=== PATIENT | male | born 1985 | race Caucasian/White ===

== ENCOUNTER → 2020-03-27 15:53 | Outpatient (BNVA) | payer OTHER, SELFPAY | PROVIDERS: PCP Internal Medicine; Referring Provider Internal Medicine; Visit Provider Nurse Practitioner | DX: K62.5 Hemorrhage of anus and rectum (principal); K21.9 Gastro-esophageal reflux disease without esophagitis; K64.4 Residual hemorrhoidal skin tags; K52.9 Noninfective gastroenteritis and colitis, unspecified; Z79.899 Other long term (current) drug therapy | CPT/HCPCS: 99212 ==

== ENCOUNTER 2020-03-28 09:18 | Outpatient (REF) | payer OTHER, SELFPAY ==
[2020-03-28 12:02] LABS: MANUAL DIFF FLAG NO
[2020-03-28 12:07] LABS: Basophils Percent Auto 0.5 % (0-2); Eosinophils Percent Auto 0.7 % (0-4); Hematocrit 44.7 % (42-52); Hemoglobin 15.3 g/dl (14.0-18.0); Imm Gran Abs Auto 0.01 X10*3/uL (0.00-0.03); Imm Gran Pct Auto 0.2 % (0.0-0.4); Lymphocytes Absolute Auto 1.6 X10*3/uL (1.2-4.9); Lymphocytes Percent Auto 27.6 % (20-40); Mean Corpuscular HGB Conc 34.2 g/dl (31.0-36.0); Mean Corpuscular Hemoglobin 30.8 pg (27.0-33.0); Mean Corpuscular Volume 90.1 fL (80-98); Mean Platelet Volume 10.4 fL (9.4-12.4); Monocytes Absolute Auto 0.4 X10*3/uL (0.1-1.2); Monocytes Percent Auto 7.2 % (2-11); Neutrophils Absolute Auto 3.6 X10*3/uL (2.0-8.3); Neutrophils Percent Auto 63.8 % (45-73); Platelet Count 305 X10*3/uL (160-400); Red Blood Count 4.96 X10*6/uL (4.60-5.80); Red Cell Distribution Width 11.9 % (11.0-16.0); White Blood Count 5.7 X10*3/uL (4.8-10.8)
[2020-03-28 13:43] LABS: Alanine Aminotransferase 21 U/L (0-40); Albumin Level 4.7 g/dL (3.5-5.0); Alkaline Phosphatase 97 U/L (39-117); Anion Gap 14 (12-20); Aspartate Amino Transferase 20 U/L (5-37); Bilirubin Total 0.7 mg/dL (0.0-1.0); Blood Urea Nitrogen 13 mg/dL (9-16); Calcium 9.3 mg/dL (8.4-10.2); Carbon Dioxide 28 mmol/L (22-29); Chloride 103 mmol/L (96-108); Estimated Glomerular Filt Rate > 60; Glucose Random 88 mg/dL (60-115); Potassium 4.8 mmol/l (3.3-5.1); Sodium 140 mmol/L (135-145); Total Protein 7.8 g/dL (6.5-8.0)
[2020-04-02 13:26] LABS: Gliadin Deamidated IgA Ab 5 Units; Gliadin Deamidated IgG Ab 3 Units
== END 2020-03-28 09:19 | disposition home or self-care (01) ==
LOC: HO.LAB 09:18
PROVIDERS: PCP Internal Medicine; Visit Provider Nurse Practitioner
DX: K52.9 Noninfective gastroenteritis and colitis, unspecified (principal); K64.4 Residual hemorrhoidal skin tags; K64.8 Other hemorrhoids
CPT/HCPCS: 36415; 46600; 80053; 83516; 85025; 86140; 99212

== ENCOUNTER → 2020-04-24 15:14 | Outpatient (BNVA) | payer OTHER, SELFPAY | PROVIDERS: PCP Internal Medicine; Visit Provider Nurse Practitioner | DX: Z76.89 Persons encountering health services in other specified circumstances (principal) ==

== ENCOUNTER 2020-05-29 10:31 | Outpatient (REF) | payer OTHER, SELFPAY ==
--- NOTE | 2020-05-29 10:37 | XR_ITS ---
EXAMINATION: XR LUMBOSACRAL SPINE CLINICAL INFORMATION: Low back pain COMPARISON: None TECHNIQUE: Three views of the lumbosacral spine. FINDINGS: The vertebral bodies have normal height and alignment. The curvature of the lumbar spine is normal. Lack of ribs at the T12 level. The disc spaces are maintained. No evidence of degenerative disc disease, pars interarticularis defect or vertebral compression fracture. The anterior and posterior elements are intact. No lytic or osteoblastic lesions. Sacrum and sacroiliac joints are unremarkable. XR/XR lumbar spine 2-3V IMPRESSION: Normal lumbar spine. No evidence of degenerative disc disease, fracture or malalignment.
== END 2020-05-29 10:32 | disposition home or self-care (01) ==
LOC: HO.XRAY 10:31
PROVIDERS: PCP Internal Medicine; Visit Provider Physician Assistant
DX: M54.5 Low back pain (principal)
CPT/HCPCS: 72100

== ENCOUNTER 2021-01-25 21:08 | Emergency (ER) | payer OTHER, SELFPAY ==
[2021-01-25 22:23] VITALS: BP 133/74; PULSE 110; RESP 16; TEMP 38; O2SAT 99; BMI 26.4
--- NOTE | 2021-01-25 23:43 | PC.NURSE ---
Patient states that it read when he urinates. Patient given a cup for urine sample and swabbed for covid.
[2021-01-25 23:50] LABS: Glucose Urine UA NEG (NEG); Leukocyte Esterase Urine 1+ (NEG); Nitrite Urine NEG (NEG); Specific Gravity - Urine 1.025 (1.005-1.025); Urine Blood 2+ (NEG); Urine Ketones NEG (NEG); Urine Protein TRACE MG/DL (NEG-TRACE)
[2021-01-25 23:53] LABS: Appearance Urine HAZY; Color Urine YELLOW
[2021-01-26 00:09] LABS: Bacteria Urine 2+ /LPF; Mucus Urine 2+ /LPF; Squamous Epithelial Cell Urine 1+ /LPF
--- NOTE | 2021-01-26 00:15 | ED.GENADULT ---
HPI - General Adult General Chief complaint: General Medical Stated complaint: body weakness Time Seen by Provider: 01/26/21 00:08 Source: patient Mode of arrival: ambulatory Limitations: no limitations History of Present Illness HPI narrative: 35 y/o male presenting to the ER with back aches, chills that started today. He also reports pain and burning when he urinates. He has some suprapubic pain but no N/V/D. He feels constipated. He denies fever, chills, SOB, cough, chest pain. He has no testicular pain, urethral discharge, or concern for STI. Patient is fully vaccinated against COVID-19 complaint: dysuria Onset (ago): hour(s) (12) Location: abdomen Radiation: non-radiation Severity: mild Severity scale (1-10): 3 Quality: burning Pain Consistency: intermittent Relieving factors: none Exacerbating factors: none Associated symptoms: denies other symptoms Treatments prior to arrival: none Related Data Home Medications Medication Instructions Recorded Confirmed loratadine-pseudoephedrine ER 10 1 tab PO DAILY 03/27/20 06/10/20 mg-240 mg tablet,extended [id number] (Claritin-D 24 Hour) Previous Rx's Medication Instructions Recorded hydrocortisone 2.5 % topical cream 1 applic [place] BID PRN #30 g 03/27/20 with perineal applicator (Anusol-HC) ibuprofen 800 mg tablet 800 mg PO Q8H PRN 7 Days #21 tab 05/28/20 tizanidine 4 mg capsule 4 mg PO BID PRN 7 Days #14 cap 06/06/20 levofloxacin 750 mg tablet 750 mg PO DAILY 7 Days #7 tab 01/26/21 Allergies Allergy/AdvReac Type Severity Reaction Status Date / Time No Known Allergies Allergy Verified 01/25/21 22:25 [No Known Allergies*] Review of Systems Review of Systems: Constitutional: No Fever, + Chills ENT/Mouth: No sore throat, No Rhinorrhea, No Swallowing Difficulty Cardiovascular: No Chest Pain, No SOB, No Orthopnea, No Edema Respiratory: No Cough, No Sputum, No Wheezing, No dyspnea Gastrointestinal: No Nausea, No Vomiting, No Diarrhea, + abdominal Pain Genitourinary: + Dysuria, + Urinary Frequency, No Hematuria Musculoskeletal: No joint pain, No Myalgias Skin: No Skin Lesions, No rash Neuro: No Weakness, No Numbness, No Dizziness, No Headache Psych: + Anxiety/Panic, No Depression Heme/Lymph: No Bruising, No Lymphadenopathy Endocrine: No Polyuria, No Polydipsia FORMERLY [facility], [facility] Past Medical History Medical History (Updated 01/26/21 @ 00:40 by RANDALL Barros) Bleeding hemorrhoids Physical exam Surgical History Hx of cystoscopy (03/01/18) Hx of endoscopy (~2017) No pertinent past surgical history Family History Family History Father Prostate cancer Mother Diabetes Hypertension Maternal Grandfather Colon cancer Social History Social History Alcohol intake: unknown Patient Tobacco Use Status: Tobacco use Unknown Use of substances other than those prescribed or required for medical reasons: Unknown Advance Directives: No Advance Directives Information Provided: No Physical Exam Vital Signs: Vital Signs: Last Vital Signs Temp 100.4 F 01/25/21 22:23 Pulse 110 H 01/25/21 22:23 Resp 16 01/25/21 22:23 BP 133/74 01/25/21 22:23 Pulse Ox 99 01/25/21 22:23 Body Mass Index 26.4 Appearance: Alert. Oriented X3. No acute distress. Eyes: Pupils equal, round and reactive to light. ENT: Pharynx normal. Neck: Normal inspection. Neck supple. CVS: Normal heart rate and rhythm. Pulses normal. Respiratory: No respiratory distress. Breath sounds normal. Abdomen: Soft and nontender. +BS x4 Skin: Skin warm and dry. Normal skin color. Normal skin turgor. No rashes. Extremities: No lower extremity edema. Neuro: Oriented X 3. No motor deficit. No sensory deficit. Course Course Course Narrative: 35 y/o male presenting with back aches and dysuria that started this afternoon. Low grade fever on arrival. No CVA tenderness. Hemodynamically stable. No N/V/D or abdominal tenderess. UA pending as well as Viral PCR. Reevaluation(s) Reevaluation #1: UA positive for infection. COVID negative. Will start PO Levaquin now and send abx to pharmacy. He is not having any vomiting or abdominal pain. Doubt kidney stone, he does not appear to be in pain. Stable for d/c home with PO abx and supportive care. Medical Decision Making Lab Data Labs: Lab Results 01/25/21 01/25/21 Range/Units 23:42 23:43 Urine Color YELLOW Urine Appearance HAZY Urine pH 6.0 (5.0-8.0) Ur Specific [place] 1.025 (1.005-1.025) Urine Protein TRACE (NEG-TRACE) MG/DL Urine Glucose (UA) NEG (NEG) MG/DL Urine Ketones NEG (NEG) MG/DL Urine Blood 2+ H (NEG) Urine Nitrite NEG (NEG) Ur Leukocyte Esterase 1+ H (NEG) Urine RBC 5-9 H (0) /HPF Urine WBC 15-29 H (0-4) /HPF Ur Squamous Epith Cells 1+ /LPF Urine Bacteria 2+ /LPF Urine Mucus 2+ /LPF Coronavirus (PCR) NEGATIVE (Negative) Influenza Type A (PCR) NEGATIVE (Negative) Influenza Type B (PCR) NEGATIVE (Negative) RSV RNA Qual (PCR) NEGATIVE (Negative) Discharge Plan Discharge Clinical Impression: Acute UTI Patient Disposition: Home, Self-Care Instructions: Urinary Tract Infection in Men (ED) Additional Instructions: Your urine test showed bladder infection. Take the prescribed antibiotic as directed - start tomorrow night, you were given the 1st dose in the ER today. You were negative for COVID, Flu and RSV. Follow up with your doctor this week. If you develop new or worsening symptoms call 911 or come back to the ER for further evaluation. Prescriptions: New levofloxacin 750 mg tablet 750 mg PO DAILY 7 Days Qty: 7 RF: 0 No Action tizanidine 4 mg capsule 4 mg PO BID PRN (Reason: muscle spasticity) 7 Days Qty: 14 RF: 0 ibuprofen 800 mg tablet 800 mg PO Q8H PRN (Reason: pain) 7 Days Qty: 21 RF: 0 loratadine-pseudoephedrine [Claritin-D 24 Hour] 10-240 mg tablet extended release 24 hr 1 tab PO DAILY RF: 0 hydrocortisone [Anusol-HC] 2.5 % cream with perineal applicator 1 applic [place] BID PRN (Reason: hemorrhoids) Qty: 30 RF: 3 Interventions: ED Discharge Assessment Last Done: 01/26/21 01:13 Discharge Date/Time: 01/26/21 01:16 Print Language: Uzbek
[2021-01-26 00:33] LABS: Influenza A PCR NEGATIVE (Negative); Influenza B PCR NEGATIVE (Negative); Resp Syncy Virus RNA Qual PCR NEGATIVE (Negative); SARS COV2 PCR INHOUSE NEGATIVE (Negative)
[2021-01-26] MEDS: Acetaminophen 325 MG TABLET 650 MG PO (00:56)
[2021-01-26] MEDS: levoFLOXacin 750 MG TABLET PO (00:56)
== END 2021-01-26 01:16 | disposition home or self-care (01) ==
PROVIDERS: Emergency Provider Emergency Medicine; PCP Internal Medicine
DX: N39.0 Urinary tract infection, site not specified (principal); Z20.822 Contact with and (suspected) exposure to COVID-19; R68.83 Chills (without fever)
CPT/HCPCS: 0241U; 36415; 81001; 99283; 99284

== ENCOUNTER 2021-09-10 07:45 | Emergency (ER) | payer OTHER, SELFPAY ==
--- NOTE | ~2021-09-10 | CT_ITS ---
EXAMINATION: CT CERVICAL SPINE WITHOUT CONTRAST CLINICAL INFORMATION: Left neck pain. Question possible radiculopathy. COMPARISON: None TECHNIQUE: Multidetector CT imaging of the cervical spine was performed without the use of intravenous contrast. Coronal and sagittal reformats were reviewed. This CT examination was performed using dose optimization techniques as appropriate, variously including the following: *Automated exposure control *Adjustment of mA and/or kV according to patient size (this includes techniques or standardized protocols for targeted exams where dose is matched to indication/reason for exam; i.e. extremities or head) *Use of iterative reconstruction technique DLP: 560 mGy-cm FINDINGS: Atlantooccipital alignment is maintained. The vertebral bodies and posterior elements align normally. No acute fracture or subluxation. Vertebral body heights and intervertebral disc spaces are preserved. Small endplate osteophytes present at C4-5-5 6. Mild uncovertebral arthrosis at C5-6. There is mild right osseous neural foraminal encroachment C5-6. There is also mild right neural foraminal encroachment at C3-4 partially related to uncovertebral arthrosis. Mild central canal stenosis suspected at C5-6. The cervicomedullary junction and spinal cord are grossly unremarkable. The paraspinal soft tissues are unremarkable. The imaged lung apices are clear. CT/CT cervical spine wo con IMPRESSION: No acute fracture or traumatic malalignment. Mild cervical spondylosis as described.
[2021-09-10 08:07] VITALS: BP 149/103; PULSE 91; RESP 18; TEMP 37.6; O2SAT 100; BMI 27.7
--- NOTE | 2021-09-10 08:09 | ED_ITS ---
HPI - General Adult General Chief complaint: Neck Pain/Injury Stated complaint: neck pain Time Seen by Provider: 09/10/21 08:07 Source: patient Limitations: no limitations and language barrier (Hospital licensed therapist utilized) History of Present Illness HPI narrative: This is a 36-year-old male complains of pain in left side of his neck down to his left posterior shoulder that started about 6 days ago. The patient has tried acetaminophen but no anti-inflammatory medicine. He has had neck pain the past but not this severe. He denies any numbness or tingling or weakness in his left arm or hand. He denies any fever headache. 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 Pain is moderately severe, worse with neck movement, aching Related Data Home Medications Medication Instructions Recorded Confirmed loratadine-pseudoephedrine ER 10 1 tab PO DAILY 03/27/20 06/10/20 mg-240 mg tablet,extended [id number] (Claritin-D 24 Hour) Previous Rx's Medication Instructions Recorded hydrocortisone 2.5 % topical cream 1 applic [place] BID PRN #30 g 03/27/20 with perineal applicator (Anusol-HC) ibuprofen 800 mg tablet 800 mg PO Q8H PRN 7 Days #21 tab 05/28/20 tizanidine 4 mg capsule 4 mg PO BID PRN 7 Days #14 cap 06/06/20 levofloxacin 750 mg tablet 750 mg PO DAILY 7 Days #7 tab 01/26/21 ibuprofen 800 mg tablet 800 mg PO Q8H PRN #30 tab 09/10/21 oxycodone-acetaminophen 7.5 mg-325 1 tab PO Q6H PRN #10 tab 09/10/21 mg tablet (Percocet) tizanidine 4 mg tablet 4 mg PO Q8H PRN #20 tab 09/10/21 Allergies Allergy/AdvReac Type Severity Reaction Status Date / Time No Known Allergies Allergy Verified 01/25/21 22:25 [No Known Allergies*] Review of Systems Constitutional: Constitutional: Denies fever(s) ENT: Reports neck pain Cardiovascular: Cardiovascular: Reports no additional cardiovascular co mplaints Respiratory: Respiratory: Reports no additional respiratory complaints Gastrointestinal: Gastrointestinal: Reports no additional gastrointestinal complaints Musculoskeletal: Musculoskeletal: Reports neck pain, Denies numbness and Denies tingling Integumentary/Breasts: Skin/Breast: Reports system reviewed and no additional complaints, except as docu Neurologic: Denies focal weakness, Denies numbness and Denies tingling PMFSH Past Medical History Medical History (Updated 09/10/21 @ 09:36 by Vern Pacheco MD) Bleeding hemorrhoids Physical exam Surgical History Hx of cystoscopy (03/01/18) Hx of endoscopy (~2017) No pertinent past surgical history Family History Family History Father Prostate cancer Mother Diabetes Hypertension Maternal Grandfather Colon cancer Social History Social History Alcohol intake: unknown Patient Tobacco Use Status: Tobacco use Unknown Advance Directives: Yes Advance Directives Information Provided: Yes Advance Directives on File: No Physical Exam ED Vital Signs: Vital Signs - 24 hr 09/10/21 08:07 Temperature 99.6 F Pulse Rate 91 Respiratory Rate 18 Blood Pressure 149/103 H Pulse Oximetry 100 BMI result Body Mass Index 27.7 Const General: no acute distress Orientation/consciousness: patient oriented x3 HENMT Head: Yes normal to inspection General nose exam: Normal external nose present Mouth: moist mucous membranes Throat: Yes posterior oropharynx normal, Yes tonsils normal and Yes uvula midline Eyes Eyelids: Yes eyelids normal Conjunctivae: conjunctivae normal Pupils: Equal, round and reactive pupils present Neck Neck: Yes supple Resp Effort & Inspection: normal respiratory effort Auscultation: clear to auscultation bilaterally Cardio Rate: regular rate Rhythm: regular rhythm Heart sounds: S1 normal heart sound present, S2 normal heart sound present, no gallops, no murmurs and no rubs GI Inspection: No distended Palpation (GI): Soft to palpation and nontender Auscultation: normal bowel sounds Back/Spine/Pelvis Other: Tenderness left base of the neck to left posterior shoulder, no focal tenderness over the cervical spine. Left arm neurovascular intact. Patient has a soft collar in place which was removed for exam Skin General skin exam: other (Warm and dry) Neuro General: patient oriented x3 and CN's II-XI intact bilaterally Cranial nerves: Yes Equal, round and reactive pupils present Extrem General: Yes no pedal edema Psych Affect: normal affect Attitude: cooperative Medical Decision Making MDM Narrative Medical decision making narrative: Patient with left lower neck and left posterior shoulder pain. No neurologic symptoms. Patient does do lot of lifting at work. Patient has had prior low back pain. CT scan of the cervical spine without contrast showed findings which could suggest cervical radiculopathy, will treat with ibuprofen, muscle relaxant, Percocet as needed for uncontrolled pain for for the next few days. Patient felt his primary care physician, may need PT referral. Patient is given time off of work, states he has vacation next week. Patient was treated with Toradol IM as well as Valium IM in the ED with some improvement Imaging Data CT cervical spine without contrast: Radiologist's impression: Atlantooccipital alignment is maintained. The vertebral bodies and posterior elements align normally. No acute fracture or subluxation. Vertebral body heights and intervertebral disc spaces are preserved. Small endplate osteophytes present at C4-5-5 6. Mild uncovertebral arthrosis at C5-6. There is mild right osseous neural foraminal encroachment C5-6. There is also mild right neural foraminal encroachment at C3-4 partially related to uncovertebral arthrosis. Mild central canal stenosis suspected at C5-6. The cervicomedullary junction and spinal cord are grossly unremarkable. The paraspinal soft tissues are unremarkable. The imaged lung apices are clear. Discharge Plan Discharge Clinical Impression: Cervical radiculopathy Patient Disposition: Home, Self-Care Instructions: Cervical Radiculopathy (ED) Additional Instructions: Use up Profen and muscle relaxant as prescribed. He denies pack off and on. Follow-up the primary care physician for referral for physical therapy. Return for any new or worsened symptoms. Prescriptions: New ibuprofen 800 mg tablet 800 mg PO Q8H PRN (Reason: pain) Qty: 30 0RF tizanidine 4 mg tablet 4 mg PO Q8H PRN (Reason: muscle spasticity) Qty: 20 0RF oxycodone-acetaminophen [Percocet] 7.5-325 mg tablet 1 tab PO Q6H PRN (Reason: pain) Qty: 10 0RF No Action tizanidine 4 mg capsule 4 mg PO BID PRN (Reason: muscle spasticity) 7 Days Qty: 14 0RF levofloxacin 750 mg tablet 750 mg PO DAILY 7 Days Qty: 7 0RF ibuprofen 800 mg tablet 800 mg PO Q8H PRN (Reason: pain) 7 Days Qty: 21 0RF loratadine-pseudoephedrine [Claritin-D 24 Hour] 10-240 mg tablet extended release 24 hr 1 tab PO DAILY 0RF hydrocortisone [Anusol-HC] 2.5 % cream with perineal applicator 1 applic [place] BID PRN (Reason: hemorrhoids) Qty: 30 3RF Stand Alone Forms: Work/School Release
[2021-09-10] MEDS: Ketorolac Tromethamine 30 MG/ML VIAL IM (08:30)
[2021-09-10] MEDS: diazePAM 10 MG/2 ML CARTRIDGE 5 MG IM (08:30)
== END 2021-09-10 10:31 | disposition home or self-care (01) ==
PROVIDERS: Emergency Provider Emergency Medicine; PCP Internal Medicine
DX: M54.12 Radiculopathy, cervical region (principal); M25.512 Pain in left shoulder
CPT/HCPCS: 72125; 96372; 99283; 99284; J1885; J3360

== ENCOUNTER 2022-03-17 08:54 | Outpatient (REF) | payer OTHER, SELFPAY ==
[2022-03-17 09:04] LABS: MANUAL DIFF FLAG NO
[2022-03-17 09:20] LABS: Basophils Percent Auto 0.3 % (0-2); Eosinophils Percent Auto 0.1 % (0-4); Hemoglobin 15.7 g/dl (14.0-18.0); Imm Gran Abs Auto 0.01 X10*3/uL (0.00-0.03); Imm Gran Pct Auto 0.1 % (0.0-0.4); Lymphocytes Absolute Auto 1.5 X10*3/uL (1.2-4.9); Lymphocytes Percent Auto 21.3 % (20-40); Mean Corpuscular HGB Conc 36.5 g/dl (31.0-36.0); Mean Corpuscular Hemoglobin 32.8 pg (27.0-33.0); Mean Platelet Volume 9.8 fL (9.4-12.4); Monocytes Absolute Auto 0.4 X10*3/uL (0.1-1.2); Monocytes Percent Auto 5.5 % (2-11); Neutrophils Absolute Auto 5.1 x10*3/uL (2.0-8.3); Neutrophils Percent Auto 72.7 % (45-73); Platelet Count 286 X10*3/uL (160-400); Red Blood Count 4.78 X10*6/uL (4.60-5.80); Red Cell Distribution Width 12.2 % (11.0-16.0); White Blood Count 7.1 X10*3/uL (4.8-10.8)
[2022-03-17 09:26] LABS: Appearance Urine Clear; Color Urine Yellow; Glucose Urine UA Negative (Negative); Leukocyte Esterase Urine Negative (Negative); Nitrite Urine Negative (Negative); PH 5.5 (5.0-9.0); Specific Gravity - Urine >= 1.030 (1.005-1.025); Urine Blood Negative (Negative); Urine Ketones Trace mg/dL (Negative); Urine Protein Trace mg/dL (Neg-Trace)
[2022-03-17 09:52] LABS: Alanine Aminotransferase 17 U/L (0-40); Albumin Level 4.5 g/dL (3.5-5.0); Alkaline Phosphatase 83 U/L (39-117); Anion Gap 14 (12-20); Aspartate Amino Transferase 18 U/L (5-37); Bilirubin Total 0.4 mg/dL (0.0-1.0); Blood Urea Nitrogen 18 mg/dL (9-16); Calcium 9.8 mg/dL (8.4-10.2); Carbon Dioxide 26 mmol/L (22-29); Chloride 104 mmol/L (96-108); Cholesterol 157 mg/dL; Estimated Glomerular Filt Rate > 60; Glucose Random 96 mg/dL (60-115); HDL Cholesterol 45 mg/dL; LDL Cholesterol Calculated 95 mg/dl; Potassium 4.4 mmol/L (3.3-5.1); Sodium 140 mmol/L (135-145); Total Protein 7.5 g/dL (6.5-8.0); Triglycerides 89 mg/dL
[2022-03-17 10:07] LABS: PSA,Total (Free>4and<10) 1.13 ng/mL (0.00-4.00)
== END 2022-03-17 08:55 | disposition home or self-care (01) ==
LOC: HO.LAB 08:54
PROVIDERS: PCP Internal Medicine; Visit Provider Nurse Practitioner Family
DX: Z13.220 Encounter for screening for lipoid disorders (principal); Z13.29 Encounter for screening for other suspected endocrine disorder; Z12.5 Encounter for screening for malignant neoplasm of prostate; N40.1 Benign prostatic hyperplasia with lower urinary tract symptoms; R39.11 Hesitancy of micturition; I10 Essential (primary) hypertension; K64.9 Unspecified hemorrhoids
CPT/HCPCS: 36415; 80053; 80061; 81003; 84153; 84443; 85025

== ENCOUNTER → 2022-05-22 10:51 | Outpatient (BNVA) | payer OTHER, SELFPAY | PROVIDERS: PCP Internal Medicine; Visit Provider Urology | DX: Z12.5 Encounter for screening for malignant neoplasm of prostate (principal); N52.1 Erectile dysfunction due to diseases classified elsewhere; Z80.42 Family history of malignant neoplasm of prostate | CPT/HCPCS: 51798; 99202 ==

== ENCOUNTER 2022-06-09 08:42 | Outpatient (REF) | payer OTHER, SELFPAY ==
[2022-06-09 10:19] LABS: PSA,Total (Free>4and<10) 1.18 ng/mL (0.00-4.00)
[2022-06-15 13:18] LABS: Testosterone, Total 423 ng/dL (250-1100)
== END 2022-06-09 08:43 | disposition home or self-care (01) ==
LOC: HO.LAB 08:42
PROVIDERS: PCP Internal Medicine; Visit Provider Urology
DX: Z12.5 Encounter for screening for malignant neoplasm of prostate (principal); N52.1 Erectile dysfunction due to diseases classified elsewhere; Z80.42 Family history of malignant neoplasm of prostate
CPT/HCPCS: 36415; 84153; 84402; 84403

== ENCOUNTER → 2022-07-09 14:17 | Outpatient (BNVA) | payer OTHER, SELFPAY | PROVIDERS: PCP Internal Medicine; Visit Provider Urology | DX: N52.9 Male erectile dysfunction, unspecified (principal); Z80.42 Family history of malignant neoplasm of prostate | CPT/HCPCS: 99212 ==

== ENCOUNTER → 2022-10-09 09:30 | Outpatient (BNVA) | payer OTHER, SELFPAY | PROVIDERS: PCP Internal Medicine; Visit Provider Urology | DX: N52.9 Male erectile dysfunction, unspecified (principal); Z80.42 Family history of malignant neoplasm of prostate | CPT/HCPCS: 51798; 99212 ==

== ENCOUNTER → 2022-10-22 08:49 | Outpatient (BNVA) | payer OTHER, SELFPAY | PROVIDERS: PCP Internal Medicine; Visit Provider Nurse Practitioner | DX: K62.5 Hemorrhage of anus and rectum (principal); K52.9 Noninfective gastroenteritis and colitis, unspecified; K21.9 Gastro-esophageal reflux disease without esophagitis; K64.9 Unspecified hemorrhoids | CPT/HCPCS: 99212 ==

== ENCOUNTER 2022-10-24 09:24 | Outpatient (REF) | payer OTHER, SELFPAY ==
[2022-10-29 11:33] LABS: Transglutaminase Ab IgG <1.0 U/mL; Transglutaminase IgA <1.0 U/mL
[2022-10-29 14:02] LABS: Gliadin Deamidated IgA Ab <1.0 U/mL; Gliadin Deamidated IgG Ab <1.0 U/mL
== END 2022-10-24 09:25 | disposition home or self-care (01) ==
LOC: HO.LAB 09:24
PROVIDERS: PCP Internal Medicine; Visit Provider Nurse Practitioner
DX: K52.9 Noninfective gastroenteritis and colitis, unspecified (principal)
CPT/HCPCS: 36415; 86258; 86364

== ENCOUNTER → 2022-10-29 15:52 | Outpatient (BNVA) | payer OTHER, SELFPAY | PROVIDERS: PCP Internal Medicine; Visit Provider Nurse Practitioner | DX: K52.9 Noninfective gastroenteritis and colitis, unspecified (principal); K64.9 Unspecified hemorrhoids; K21.9 Gastro-esophageal reflux disease without esophagitis | CPT/HCPCS: 99212 ==

== ENCOUNTER 2023-03-31 08:24 | Outpatient (AMB) | payer OTHER, SELFPAY ==
[2023-03-31 08:32] VITALS: BP 126/82; PULSE 72; O2SAT 98; BMI 29.3
--- NOTE | 2023-03-31 08:32 | MHC.PC.OV ---
Vital Signs 03/31/23 08:32 Height 5 ft 11 in Weight 210 lb BMI 29.3 BP 126/82 Blood Pressure Location Lt brachial Position Sitting Pulse 72 Pulse Source Pulse Oximeter Pulse Oximetry (%) 98 Oxygen Delivery Method Room Air Intake Visit Reasons: Annual Exam [employer] Required: No Accompanied by: Self / Same As Patient Allergies No Known Allergies [No Known Allergies*] Allergy (Verified 03/31/23 08:42) Medication List - Last Reconciled 03/31/23 by Karla Ruiz MD peg 3350-electrolytes 236-22.74-6.74 -5.86 gram (Golytely) 240 mL PO Q10M 1 day tadalafil (Cialis) 5 mg PO DAILY Tobacco use date assessed: 03/31/23 Dental Screening Dental Screen Date: 03/31/23 Did you have a dental visit in the last 12 months?: Yes Did you have a dental problem in the last 6 months where you did not have access to dental care?: No Was dental information given to patient?: Patient has dentist HPI HPI Comments History of Present Illness Details This is a 37-year-old male that comes for his physical exam. He complains chronic diarrhea and fresh blood in stools. Will have colonoscopy next year. No chest pain or shortness of breath. [facility] Medical History Lumbar spine pain Bleeding hemorrhoids Physical exam Surgical History Hx of cystoscopy (03/01/18) Hx of endoscopy (~2017) Family History Father Prostate cancer Mother Hypertension Diabetes Maternal Grandfather Colon cancer Social History Housing: House Alcohol intake: never Patient Tobacco Use Status: Never used Tobacco e-Cigarette/Vaping Use: Never Used Second Hand Smoke Exposure: No service: No Current occupational status: employed Current occupational exposures/hazards: No Cognitive needs: No Hearing needs: No Vision needs: No Questionnaire PHQ-9 Over the last 2 weeks, how often have you been bothered by any of the following problems? 1. Little interest or pleasure in doing things: not at all 2. Feeling down, depressed, or hopeless: not at all 3. Trouble falling or staying asleep, or sleeping too much: not at all 4. Feeling tired or having little energy: not at all 5. Poor appetite or overeating: not at all 6. Feeling bad about yourself - or that you are a failure or have let yourself or your family down: not at all 7. Trouble concentrating on things, such as reading the newspaper or watching television: not at all 8. Moving or speaking so slowly that other people could have noticed. Or the opposite - being so fidgety or restless that you have been moving around a lot more than usual: not at all 9. Thoughts that you would be better off or of hurting yourself in some way: not at all Total score: 0 Depression Screening Interpretation: Negative Depression Screening Done: Yes 45147 - PHQ-9 Billing: Yes Source: Developed by Drs. Leo Marie, Olive Baron, Daron Tolliver and colleagues, with an educational sergio from [employer]. Thrive Questionnaire Date Thrive assessed: 09/14/22 AUDIT C Alcohol Use Questionnaire (AUDIT-C) 1. How often do you have a drink containing alcohol?: Never Total Score: 0 CELIA-7 AMB Questionnaire CELIA-7 Date CELIA - 7 assessed: 03/31/23 Feeling nervous, anxious, or on edge: 0 = Not at all Not being able to stop or control worryin = Not at all Worrying too much about different things: 0 = Not at all Trouble relaxin = Not at all Being so restless that it is hard to sit still: 0 = Not at all Becoming easily annoyed or irritable: 0 = Not at all Feeling afraid as if something awful might happen: 0 = Not at all Total CELIA-7 score (0-4 normal; 5-9 mild; 10-14 moderate; 15-21 severe): 0 Source: Developed by Drs. Leo Mraie, Daron Fagan and colleagues, with an educational sergio from [employer]. CELIA-7 Assessment Billing CELIA-7 Assessment Tool: CELIA-7 Assessment 91953 Review of Systems Const All systems reviewed & are unremarkable except as noted in HPI and below Eyes Reports no additional complaints, Denies change in vision and Denies other visual disturbances Card Denies chest pain at rest, Denies chest pain with activity, Denies edema, Denies irregular heart rhythm, Denies claudication, Denies dyspnea, Denies dyspnea on exertion, Denies orthopnea, Denies paroxysmal nocturnal dyspnea and Denies slow heart rate Resp Denies cough, Denies dyspnea and Denies dyspnea on exertion GI Denies abdominal pain, Denies change in bowel habits, Denies excessive flatus, Denies nausea and Denies vomiting Denies urinary hesitancy, Denies urinary incontinence and Denies urinary urgency Musc Denies abnormal gait, Denies atrophy, Denies deformity and Denies limited range of motion Skin/Breast Denies bleeding lesions, Denies changing lesions and Denies rash Neuro Denies abnormal gait, Denies behavioral changes, Denies confusion and Denies lack of coordination Psych Denies behavioral changes and Denies confusion Physical exam (Primary Care) Vital Signs: Last Vital Signs Pulse 72 03/31/23 08:32 BP 126/82 03/31/23 08:32 Pulse Ox 98 03/31/23 08:32 Oxygen Delivery Method Room Air 03/31/23 08:32 BMI result Body Mass Index 29.3 Tobacco/Smoking Status: Tobacco use Status Tobacco use date assessed 03/31/23 03/31/23 08:38 Patient Tobacco Use Status Never used Tobacco 03/31/23 08:38 e-Cigarette/Vaping Use Never Used 03/31/23 08:38 PHQ-9: PHQ-9 Score PHQ-9: Total score 0 03/31/23 08:38 Depression Screening Interpretation: Negative Thrive Assessment: Date of Thrive Assessment Date Thrive assessed 09/14/22 03/31/23 08:38 Const General: No confusion Orientation/consciousness: patient oriented x3 and No confusion HENMT Head: Yes normal to inspection, Yes normocephalic and Yes atraumatic Ears: external ears normal Eyes General: appearance normal, both eyes and all related structures Eyelids: Yes eyelids normal Conjunctivae: conjunctivae normal Neck Neck: Yes normal visual inspection and Yes supple Resp Effort & Inspection: normal respiratory effort Auscultation: clear to auscultation bilaterally Cardio Jugular venous distension: no JVD Rate: regular rate Rhythm: regular rhythm Heart sounds: S1 normal heart sound present and S2 normal heart sound present GI Inspection: Yes normal to inspection Palpation (GI): Soft to palpation and nontender Auscultation: normal bowel sounds Skin General skin exam: no rashes or lesions noted Neuro General: patient oriented x3, no focal motor deficits and No confusion Extrem General: Yes full ROM Psych Appearance: grossly normal Assessment and Plan Assessment & Plan (1) Physical exam: Code(s): Z00.00 - Encounter for general adult medical examination without abnormal findings Plan: Repeat in a year. Orders: Orders Comprehensive Met. Panel Today Z00.00 - Encounter for general adult medical examination without abnormal findings Lipid Panel Today Z00.00 - Encounter for general adult medical examination without abnormal findings Complete Blood Count Auto Diff Today K64.9 - Unspecified hemorrhoids IRON PROFILE Today K64.9 - Unspecified hemorrhoids Coding Level of Care Code Est Pt Prev Care 18-39y(45400) Diagnoses Physical exam Z00.00 Additional Codes CELIA-7 Assessment Billing - CELIA-7 Assessment Tool: CELIA-7 Assessment 17325 ([id number]) Time Spent (min) 31
== END 2023-03-31 08:50 | disposition home or self-care (01) ==
PROVIDERS: Visit Provider Internal Medicine
DX: Z00.00 Encounter for general adult medical examination without abnormal findings (principal)
CPT/HCPCS: 99395

== ENCOUNTER 2023-04-03 09:09 | Outpatient (REF) | payer OTHER, SELFPAY ==
[2023-04-03 09:18] LABS: MANUAL DIFF FLAG NO
[2023-04-03 10:11] LABS: Alanine Aminotransferase 19 U/L (0-40); Albumin Level 4.3 g/dL (3.5-5.0); Alkaline Phosphatase 94 U/L (39-117); Anion Gap 11 (12-20); Aspartate Amino Transferase 20 U/L (5-37); Bilirubin Total 0.7 mg/dL (0.0-1.0); Blood Urea Nitrogen 17 mg/dL (9-16); Calcium 9.1 mg/dL (8.4-10.2); Carbon Dioxide 25 mmol/L (22-29); Chloride 106 mmol/L (96-108); Cholesterol 165 mg/dL (<200); Estimated Glomerular Filt Rate > 60; Glucose Random 94 mg/dL (60-115); HDL Cholesterol 41 mg/dL (>40); Iron 93 mcg/dL (45-160); LDL Cholesterol Calculated 109 mg/dL (<100); Percent Iron Saturation 42 % (15-50); Potassium 3.9 mmol/L (3.3-5.1); Sodium 138 mmol/L (135-145); Total Iron Binding Capacity 222 mcg/dL (228-428); Total Protein 7.6 g/dL (6.5-8.0); Triglycerides 75 mg/dL (<150); Unsaturated Iron Binding 129 ug/dL
[2023-04-03 10:14] LABS: Basophils Percent Auto 0.6 % (0-2); Eosinophils Absolute Auto 0.1 X10*3/uL (0.0-0.4); Eosinophils Percent Auto 1.3 % (0-4); Hematocrit 43.4 % (42.0-52.0); Hemoglobin 14.9 g/dl (14.0-18.0); Imm Gran Abs Auto 0.01 X10*3/uL (0.00-0.03); Imm Gran Pct Auto 0.2 % (0.0-0.4); Lymphocytes Absolute Auto 2.1 X10*3/uL (1.2-4.9); Lymphocytes Percent Auto 33.7 % (20-40); Mean Corpuscular HGB Conc 34.3 g/dl (31.0-36.0); Mean Corpuscular Hemoglobin 30.7 pg (27.0-33.0); Mean Corpuscular Volume 89.3 fL (80.0-98.0); Mean Platelet Volume 10.5 fL (9.4-12.4); Monocytes Absolute Auto 0.5 X10*3/uL (0.1-1.2); Monocytes Percent Auto 7.3 % (2-11); Neutrophils Absolute Auto 3.6 x10*3/uL (2.0-8.3); Neutrophils Percent Auto 56.9 % (45-73); Platelet Count 324 X10*3/uL (160-400); Red Blood Count 4.86 X10*6/uL (4.60-5.80); Red Cell Distribution Width 12.1 % (11.0-16.0); White Blood Count 6.3 X10*3/uL (4.8-10.8)
[2023-04-05 05:33] LABS: Follicle Stimulating Hormone 4.6 mIU/mL (1.6-8.0); Lutenizing Hormone 4.4 mIU/mL (1.5-9.3); Prolactin 5.4 ng/mL (2.0-18.0); Sex Hormone Binding Globulin 26 nmol/L (10-50)
[2023-04-08 14:03] LABS: Testosterone, Total 430 ng/dL (250-1100)
== END 2023-04-03 09:10 | disposition home or self-care (01) ==
LOC: HO.LAB 09:09
PROVIDERS: Absent Provider Internal Medicine; PCP Internal Medicine; Visit Provider Urology
DX: Z00.00 Encounter for general adult medical examination without abnormal findings (principal); K64.9 Unspecified hemorrhoids; N52.1 Erectile dysfunction due to diseases classified elsewhere
CPT/HCPCS: 36415; 80053; 80061; 83001; 83002; 83540; 84146; 84270; 84402; 84403; 85025

== ENCOUNTER 2023-04-30 10:05 | Outpatient (AMB) | payer OTHER, SELFPAY ==
--- NOTE | 2023-04-30 10:08 | MHC.OFFVIS ---
Intake Intake Visit Reasons: follow up/labs Intake Note: Patient is present for Follow Up Labs Results: Urology Med: Tadalafil Antibiotic Allergy:None Blood Thinner: None Local Government Legislator Required: No Accompanied by: Self / Same As Patient Allergies No Known Allergies [No Known Allergies*] Allergy (Verified 04/30/23 10:08) Medication List - Last Reconciled 04/30/23 by Berhane Garza MD sildenafil (Viagra) 100 mg PO DAILY PRN HPI HPI Comments History of Present Illness Details Lester is a 37-year-old male who presents today to the office for a follow-up. 04/30/2023-- He is followed today for lab results. The patient is a Georgian speaking male. 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 He was last seen by me on 10/09/2022 for erectile dysfunction. I have reviewed the blood work results from 03/2023- total testosterone was 430 and free testosterone was 74. The patient was prescribed Cialis 5 mg daily, and initially stated there was partial improvement in erections with the medication. Today the pt states he stopped the Cialis because he does not feel it was helping. I have discussed that there can be multiple components that contribute to sexual drive including stress, depression, and interpersonal relationship with his partner. The patient states he is exhausted when he comes home from work, he works 12 hour shifts. 04/30/2023: Plan: Viagra 100 mg on demand 30 minutes to one hour prior to sexual activity PFSH Medical History Lumbar spine pain Bleeding hemorrhoids Physical exam Surgical History Hx of cystoscopy (03/01/18) Hx of endoscopy (~2017) Family History Father Prostate cancer Mother Hypertension Diabetes Maternal Grandfather Colon cancer Social History Housing: House Alcohol intake: never Patient Tobacco Use Status: Never used Tobacco e-Cigarette/Vaping Use: Never Used Second Hand Smoke Exposure: No service: No Current occupational status: employed Current occupational exposures/hazards: No Cognitive needs: No Hearing needs: No Vision needs: No Review of Systems Const All systems reviewed & are unremarkable except as noted in HPI and below Reports no additional complaints Eyes Reports no additional complaints ENT Reports no additional complaints Card Denies dyspnea Resp Denies cough and Denies dyspnea GI Reports no additional complaints Musc Reports no additional complaints Skin/Breast Denies rash and Denies unusual bruising Neuro Reports no additional complaints Psych Reports no additional complaints Endo Reports no additional complaints Joaquin/Lymph Reports no additional complaints Aller/Immun Reports no additional complaints Results AMB Urinalysis, Automated UA Leukoctes 0 Carroll/uL Last Edit by Cortez Desai [facility] on 04/30/23 10:21 UA Nitrite Negative Last Edit by Cortez Desai [facility] on 04/30/23 10:21 UA Urobilinogen 0.2 mg/dL Last Edit by Cortez Desai [facility] on 04/30/23 10:21 UA Protein 15 mg/dL Last Edit by Cortez Desai [facility] on 04/30/23 10:21 UA pH 5.5 Last Edit by Cortez Desai [facility] on 04/30/23 10:21 UA Blood 0 Miguel/uL Last Edit by Coretz Desai [facility] on 04/30/23 10:21 UA Specific [place] 1.030 Last Edit by Cortez Desai [facility] on 04/30/23 10:21 UA Ketone Negative Last Edit by Cortez eDsai [facility] on 04/30/23 10:21 UA Bilirubin 0 mg/dL Last Edit by Cortez Desai [facility] on 04/30/23 10:21 UA Glucose 0 mg/dL Last Edit by Cortez Desai [facility] on 04/30/23 10:21 Results Reviewed Results Reviewed: Laboratory Last Values Urine pH (Auto) 5.5 04/30/23 10:20 Specific [place] (Auto) 1.030 04/30/23 10:20 Urine Protein (Auto) 15 mg/dL 04/30/23 10:20 Glucose (UA)(Auto) 0 mg/dL 04/30/23 10:20 Urine Ketones (Auto) Negative 04/30/23 10:20 Urine Blood (Auto) 0 Miguel/uL 04/30/23 10:20 Urine Nitrite (Auto) Negative 04/30/23 10:20 Urine Bilirubin (Auto) 0 mg/dL 04/30/23 10:20 Urine Urobilinogen (Auto) 0.2 mg/dL 04/30/23 10:20 Leukocyte Esterase (Auto) 0 Carroll/uL 04/30/23 10:20 Assessment & Plan Assessment & Plan (1) Erectile disorder due to medical condition in male: Code(s): N52.1 - Erectile dysfunction due to diseases classified elsewhere (2) Family history of prostate cancer: Code(s): Z80.42 - Family history of malignant neoplasm of prostate Plan Viagra 100 mg on demand 30 minutes to one hour prior to sexual activity Orders: Orders AMB Urinalysis Automated Today Z13.9 - Encounter for screening, unspecified Medications: New sildenafil (Viagra) administer 30 minutes to 1 hours before activity [id number] [facility] [place] [id number] Member [id number] 100 mg PO DAILY PRN 30 tabs 2RF sexual activity Discontinued tadalafil (Cialis) [facility] [address] [id number] Discontinued Reason: Doctor's Order 5 mg PO DAILY 30 tabs 3RF Patient Instructions: The patient had an opportunity to ask questions regarding treatment plan. All questions were answered. Laboratory studies and physical exam results were discussed and reviewed in detail. No major barriers to understanding were identified. The patient expressed understanding and agreement with the above treatment plan. The patient is aware they should contact our office by phone for worsening of their current condition or the appearance of new symptoms. Compliance is encouraged with any medications and followup testing that is ordered. It is a privilege to be allowed the opportunity to participate in the urologic care of your patient. If you have any questions or concerns regarding treatment for the above conditions please do not hesitate to contact me. The office telephone contact is [phone]. This note is constructed in part using voice recognition software. While every effort has been made to ensure accuracy acid maker errors may have been included. Yours sincerely, Berhane Garza MD Coding Level of Care Code Est Pt Level 4 (14532) Diagnoses Erectile disorder due to medical condition in male N52.1 Family history of prostate cancer Z80.42
== END 2023-04-30 10:44 | disposition home or self-care (01) ==
PROVIDERS: PCP Internal Medicine; Visit Provider Urology
DX: N52.9 Male erectile dysfunction, unspecified (principal); Z80.42 Family history of malignant neoplasm of prostate; Z13.9 Encounter for screening, unspecified
CPT/HCPCS: 99214

== ENCOUNTER → 2023-04-30 10:05 | Outpatient (BNVA) | payer OTHER, SELFPAY | PROVIDERS: PCP Internal Medicine; Visit Provider Urology | DX: Z80.42 Family history of malignant neoplasm of prostate (principal); N52.1 Erectile dysfunction due to diseases classified elsewhere | CPT/HCPCS: 81003; 99212 ==

== ENCOUNTER 2023-06-21 09:38 | Day surgery (SDC) | payer OTHER, SELFPAY ==
--- NOTE | 2023-06-18 10:15 | HO.ANESPROP2 ---
Documented by User: Mariana Peterson NP 06/18/23 10:16 HPI - Anesthesia Eval Consult details Narrative: 38yo M for Colonoscopy PMFSH Active Problems Active Problems: All Active Problems (Updated 10/29/22 @ 16:09 by MARCO Yap) Family history of prostate cancer (Acute) Screening PSA (prostate specific antigen) (Acute) Erectile disorder due to medical condition in male (Acute) Lumbar spine pain (Acute) Bleeding hemorrhoids (Acute) Chronic diarrhea (Acute) Rectal bleeding (Acute) GERD (gastroesophageal reflux disease) (Acute) BPH (benign prostatic hyperplasia) (Acute) Hemorrhoids (Acute) Allergic rhinitis (Acute) Physical exam (Acute) Past Medical History Medical History Lumbar spine pain Bleeding hemorrhoids Physical exam Family History Family History Father Prostate cancer Mother Hypertension Diabetes Maternal Grandfather Colon cancer Surgical History Surgical History Hx of cystoscopy (03/01/18) Hx of endoscopy (~2017) Social History Social History Housing: House Alcohol intake: never Patient Tobacco Use Status: Never used Tobacco e-Cigarette/Vaping Use: Never Used Second Hand Smoke Exposure: No service: No Current occupational status: employed Current occupational exposures/hazards: No Cognitive needs: No Hearing needs: No Vision needs: No Meds Allergies Allergy/AdvReac Type Severity Reaction Status Date / Time No Known Allergies Allergy Verified 04/30/23 10:08 [No Known Allergies*] Exam Pertinent Lab Results Pertinent Lab Results: Laboratory Tests 04/03/23 09:17 WBC 6.3 Hgb 14.9 Hct 43.4 Plt Count 324 Sodium 138 Potassium 3.9 Chloride 106 Carbon Dioxide 25 BUN 17 H Creatinine 1.06 Assessment and Plan Assessment Anesthesia Assessment: Chart Reviewed Documented by User: Lotus Choi MD 06/21/23 11:02 PMFSH Past Medical History Medical History Lumbar spine pain Bleeding hemorrhoids Physical exam Family History Family History Father Prostate cancer Mother Hypertension Diabetes Maternal Grandfather Colon cancer Family history of problems with anesthesia: No Surgical History Surgical History Hx of cystoscopy (03/01/18) Hx of endoscopy () History of Problems with Anesthesia: No Social History Social History Housing: House Alcohol intake: never Patient Tobacco Use Status: Never used Tobacco e-Cigarette/Vaping Use: Never Used Second Hand Smoke Exposure: No service: No Current occupational status: employed Current occupational exposures/hazards: No Cognitive needs: No Hearing needs: No Vision needs: No Meds Allergies Allergy/AdvReac Type Severity Reaction Status Date / Time No Known Allergies Allergy Verified 04/30/23 10:08 [No Known Allergies*] Exam Airway Mallampati Class: II TM Dist: >3cm Neck ROM: Full Heart: RRR Lungs: CTA Assessment and Plan Assessment Anesthesia Assessment: Anesthesia Plan Discussed Final Anesthetic Review Family History of Problems with Anesthesia: No History of Problems with Anesthesia: No NPO: Yes Final Preanesthetic Review: Meds/Allgs Chart Reviewed, Consent Obtained/Reviewed and Anes Risks/Benef Reviewed Patient Risk: Low Procedure Risk: Low Anesthetic Plan Anesthetic Plan: MAC: Disposition: Standard PACU
[2023-06-21 10:53] VITALS: BP 123/81; PULSE 90; RESP 18; TEMP 36.6; O2SAT 99; BMI 28.7
--- NOTE | 2023-06-21 11:22 | MHC.SHP ---
Pre-Procedural Eval Section A - 24 Hr Update-Section A only Date of Service: 06/21/23 The patient is an INPATIENT: No The patient has been examined within 24 hours of the surgical procedure. The History & Physical has been completed within 30 days and I have reviewed it.: No Section B - Complete if H&P > 30 days Chief Complaint: rectal bleeding Relevant Family History (Specify if Yes): Yes Relevant Social History: Tobacco Use Present Medications: see Short Stay Collaborative assessment Medical History: Significant History (Bleeding hemorrhoids Lumbar spine pain) History of Previous Operations: Relevant previous surgery/procedure and date(s) (Hx of cystoscopy (03/01/18) Hx of endoscopy (~2017)) Allergies: Allergies Allergy/AdvReac Type Severity Reaction Status Date / Time No Known Allergies Allergy Verified 04/30/23 10:08 [No Known Allergies*] Review of Systems Sugical H&P ROS: Negative: Constitution, Cardiovascular and Respiratory and Yes, Specify: Gastrointestinal (rectal bleeding) Exam Surgical H&P Exam: Normal: Heart, Normal: Lungs, Normal: Extremities and Normal: Abdomen Plan Diagnosis/Plan: Unchanged I have reviewed the history and physical and performed a pertinent physical examination on my patient. No changes have occurred unless specified. Time Spent With Patient Time: Total time managing care of this patient today ____ minutes.
--- NOTE | 2023-06-21 11:33 | W.PM.OPN ---
Operative Note Operative Note Date of Service: 06/21/23 Narrative: COLONOSCOPY TILL CECUM WITH BIOPSIES Pre-op diagnosis: Rectal bleeding, postprandial diarrhea Post-op diagnosis:? Colon polyps, diverticulosis, hemorrhoids Endoscopist:? Lorraine Paez MD Anesthesia:?MAC Consent: Indications for the procedure and potential complications of bleeding, perforation, reaction to medications and missed diagnosis were discussed with the patient with the help of an [facility] australian speech language pathologist assistant, Ruthie and informed consent was obtained. Instrument: Olympus CF H 190 L variable stiffness adult colonoscope Monitoring: Vital signs and clinical assessment, intermittent blood pressure monitoring, continuous EKG monitoring, Pulse oximetry and Carbon Dioxide monitoring were done throughout the procedure. Please see anesthesia flowsheet. Colon withdrawl time was 11 minutes. Procedure: The patient was placed in the left lateral decubitis position and pre-procedure medications were administered. After a digital rectal examination of the ano-rectum, the video colonoscope was inserted into the rectum and advanced through the colon to the cecum. The colonoscope was slowly withdrawn in a retrograde panoramic fashion and the colon mucosa was carefully examined including a retroflexed view of the rectum. Findings and interventions are described below. Procedure Difficulty: Without difficulty Findings: Terminal Ileum: Not evaluated Cecum: Normal Ascending Colon: Two 5- 6 mm sessile polyps in the distal AC - removed with a cold biopsy Transverse Colon: Normal Descending Colon: Moderate diverticulosis Sigmoid Colon: A 4-5 mm sessile polyp - removed with a cold biopsy. Moderate diverticulosis Rectum: Normal Ano-rectum: Moderate internal hemorrhoids Colon preparation: Good after some irrigation [place] Bowel Preparation Scale Right colon; 2 Transverse colon: 2 Left colon; 3 (0 = Unprepared colon segment with mucosa not seen due to solid stool that cannot be cleared. 1 = Portion of mucosa of the colon segment seen, but other areas of the colon segment not well seen due to staining, residual stool and/or opaque liquid. 2 = Minor amount of residual staining, small fragments of stool and/or opaque liquid, but mucosa of colon segment seen well. 3 = Entire mucosa of colon segment seen well with no residual staining, small fragments of stool or opaque liquid) Impression and Post Procedure Diagnosis: Colonoscopy Findings: Three small polyps removed Random biopsies were obtained from the colon to check for microscopic colitis Moderate diverticulosis seen in the left colon Large hemorrhoids on retroflexed exam - likely source for rectal bleeding. Plan: I will send a letter with pathology results Hydrocortisone cream for hemorrhoids. If bleeding persists refer to surgery for band ligation or hemorrhoidectomy. Patient has an appointment on 07/06/23 in the [facility] with Yue Reddy NP. Repeat Colonoscopy interval based on path results - in 3-5 years if polyps are adenomatous and 10 years if polyps are hyperplastic. Above findings were reviewed with the patient and colon polyps, hemorrhoids and diverticulosis handouts were given in the discharge area.
[2023-06-21 12:14] VITALS: BP 103/63; PULSE 93; RESP 14; TEMP 36.7; O2SAT 98
[2023-06-21 12:29] VITALS: BP 109/72; PULSE 72; RESP 16; TEMP 36.3; O2SAT 100
--- NOTE | 2023-06-21 13:01 | HO.POSTANES ---
Post Anesthesia Evaluation Post Anesthesia Evaluation Date of Service: 06/21/23 Vital Signs: Vital Signs Temp Pulse Resp BP Pulse Ox O2 Del Method 06/21/23 12:29 97.4 F 72 16 109/72 100 Room Air 06/21/23 12:14 98.0 F 93 14 103/63 98 Room Air 06/21/23 10:53 97.9 F 90 18 123/81 99 Room Air Anesthesia: Monitored Mental Status: Awake Pain Control: Satisfactory Nausea/Vomiting: None Hydration: Adequate Anesthesia-Related Issues: No Anes. Related Issues
== END 2023-06-21 13:30 | disposition home or self-care (01) ==
PROVIDERS: PCP Internal Medicine; Visit Provider Internal Medicine Gastroenterology
PROC: 0DJD8ZZ Inspection of Lower Intestinal Tract, Via Natural or Artificial Opening Endoscopic (ICD-10-PCS; CPT 45378; principal; 2023-06-21 11:20)
DX: K63.5 Polyp of colon (principal); K57.30 Diverticulosis of large intestine without perforation or abscess without bleeding; K64.8 Other hemorrhoids; K52.9 Noninfective gastroenteritis and colitis, unspecified
CPT/HCPCS: 45380; 88305; J2704

== ENCOUNTER → 2023-06-21 09:38 | Outpatient (BNV) | payer OTHER, SELFPAY | PROVIDERS: PCP Internal Medicine; Visit Provider Internal Medicine Gastroenterology | DX: K62.5 Hemorrhage of anus and rectum (principal); K63.5 Polyp of colon; K57.90 Diverticulosis of intestine, part unspecified, without perforation or abscess without bleeding; K64.8 Other hemorrhoids | CPT/HCPCS: 45380 ==

== ENCOUNTER 2023-08-06 10:55 | Outpatient (REF) | payer OTHER, SELFPAY | END 2023-08-06 10:56 | disposition home or self-care (01) | LOC: HO.LAB 10:55 | PROVIDERS: PCP Internal Medicine; Visit Provider Nurse Practitioner | DX: K52.9 Noninfective gastroenteritis and colitis, unspecified (principal); K64.9 Unspecified hemorrhoids; Z91.09 Other allergy status, other than to drugs and biological substances | CPT/HCPCS: 36415; 86003; 99212 ==

== ENCOUNTER 2023-08-06 10:55 | Outpatient (AMB) | payer OTHER, SELFPAY ==
[2023-08-06 10:58] VITALS: BP 138/89; BMI 29.6
--- NOTE | 2023-08-06 10:58 | A.OFFVIS_ITS ---
Intake Vital Signs 08/06/23 10:58 Height 5 ft 11 in Weight 212 lb 1.355 oz BMI 29.6 BP 138/89 Blood Pressure Location Lt brachial Position Sitting Intake Visit Reasons: s/p colon Intake Note: Patient returns in follow up of colonoscopy. CC: Patient states that he has being watching what he eats to avoid abdominal discomfort. Denies any new GI concerns today. 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 When he bleeds the entire bowel is filled with red blood. This concerns him. WE review the test and he seems not to have Celiac. We will proceed to colo noscopy. He denies any cardiac or respiratory problems. No ID problems. NO problems with prior sedation for EGD. His maternal grandfather had CRC in his 80's no other known. I will see him after the colonoscopy. (2) Bleeding hemorrhoids: Code(s): K64.9 - Unspecified hemorrhoids (3) GERD (gastroesophageal reflux diseas e): Code(s): K21.9 - Gastro-esophageal reflux disease without esophagitis (4) Hemorrhoids: Comment: Large and external Code(s): K64.9 - Unspecified hemorrhoids Medications: New peg 3350-electroly heladio 236-22.74-6.74 -5.86 gram (Golyt anne) until feca l effluent is brook r; do not exceed a total volume of 2 ,000 mL 240 mL PO Q10M 4,0 00 mL 0RF 1 day Z12.11 - Encounter for screening for malignant neoplas m of colon COLONOSCOPY 06/21/23 Findings: Terminal Ileum: Not evaluated Cecum: Normal Ascending Colon: Two 5- 6 mm sessile polyps in the distal AC - removed with a cold biopsy Transverse Colon: Normal Descending Colon: Moderate diverticulosis Sigmoid Colon: A 4-5 mm sessile polyp - removed with a cold biopsy. Moderate diverticulosis Rectum: Normal Ano-rectum: Moderate internal hemorrhoids Impression and Post Procedure Diagnosis: Colonoscopy Findings: Three small polyps removed Random biopsies were obtained from the colon to check for microscopic colitis Moderate diverticulosis seen in the left colon Large hemorrhoids on retroflexed exam - likely source for rectal bleeding. Plan: I will send a letter with pathology results Hydrocortisone cream for hemorrhoids. If bleeding persists refer to surgery for band ligation or hemorrhoidectomy. Patient has an appointment on 07/06/23 in the GI Clinic with Yue Reddy NP. Repeat Colonoscopy interval based on path results - in 3-5 years if polyps are adenomatous and 10 years if polyps are hyperplastic. BIOPSY Received: 06/21/23 Diagnosis A. Colon, ascending, polypectomies: - Colonic mucosa with prominent lymphoid aggregate. - Colonic mucosa with mild surface hyper plastic changes; multiple additional levels examined. B. Colon, left, biopsy: Colonic mucosa within normal limits; negative for microscopic colitis. C. Colon, sigmoid, polypectomy: Hyperplastic mucosal polyp TODAY'S VISIT [place] #[id number] He is agreeable to a 10 year follow up. The procedure was well tolerated. The results were explained and the patient is agreeable to the follow-up interval as stated. The bowel pattern has returned to normal. Education was provided to tell any 1st degree relatives about their findings to be sure that they are screened by age 45. Educated that they will be put on a recall list when it is time for their repeat scope but should they move out of state or away from the hospital they will need to remember along with their primary to repeat the procedure in a timely fashion to avoid any adverse complications. He continues to have diarrhea depending on what I eat. He says that sweet crackers or grape juice give him diarrhea as well as cheese. Drinking OJ also give him a lot of gas. I think we should do food allergy testing going forward, but he may have intolerances that are not easily tested for except via trial and error. If we do not find outright allergies, we may need to consider creon - but for now he does not feel he needs any medication to control the diarrhea. His bleeding is most likely from hemorrhoids. I had sent proctosol cream, but he has not picked it up as he has not had any more bleeding. ROV 4 weeks for RAST results. [facility] Medical History Lumbar spine pain Bleeding hemorrhoids Physical exam Surgical History Hx of cystoscopy (03/01/18) Hx of endoscopy (~2017) Family History Father Prostate cancer Mother Hypertension Diabetes Maternal Grandfather Colon cancer Social History Housing: House Alcohol intake: never Patient Tobacco Use Status: Never used Tobacco e-Cigarette/Vaping Use: Never Used Second Hand Smoke Exposure: No service: No Current occupational status: employed Current occupational exposures/hazards: No Cognitive needs: No Hearing needs: No Vision needs: No Review of Systems Const Denies fatigue, Denies fever(s), Denies night sweats, Denies poor appetite and Denies weight loss ENT Reports Normal hearing present, Denies dental pain, Denies dysphagia, Denies hearing loss, Denies mouth pain, Denies odynophagia, Denies throat swelling, Denies tongue swelling and Reports other (Dentition adequate) Card Reports no additional complaints Resp Reports no additional complaints GI Details: Denies abdominal pain, Denies melena, Reports bloating, Denies hematochezia, Denies constipation, Denies GI cramping, Denies dysphagia, Denies excessive flatus, Denies early satiety, Reports heartburn, Reports diarrhea, Denies nausea, Denies odynophagia, Denies vomiting and Denies hematemesis Skin/Breast Denies pruritus, Denies lesions, Denies rash and Denies jaundice Neuro Reports Normal hearing present and Denies Abnormal speech present Endo Denies fatigue Aller/Immun Denies throat swelling and Denies tongue swelling Physical Exam Vital Signs: Last Vital Signs BP 138/89 08/06/23 10:58 BMI result Body Mass Index 29.6 Const General: cooperative, no acute distress, well developed and well groomed Nutritional Appearance: average body habitus and well nourished Orientation/consciousness: oriented to person, oriented to place and oriented to time Limitations: language barrier HEENT Head: Yes normocephalic and Yes atraumatic Eyes General: appearance normal, both eyes and all related structures Pupils: Equal, round and reactive pupils present Neck Neck: Yes normal visual inspection and Yes no lymphadenopathy Thyroid: Thyroid normal Resp Effort & Inspection: normal respiratory effort and able to speak in complete sentences Auscultation: clear to auscultation bilaterally Cardio Rate: regular rate Rhythm: regular rhythm Heart sounds: Normal, physiologic split S2 sound present Peripheral pulses: radial pulses present and posterior tibial pulses present GI Inspection: No distended and No Abdominal panniculus present Palpation (GI): Soft to palpation, nontender, no guarding, not rigid and No hepatosplenomegaly present Percussion: Yes normal to percussion Auscultation: normal bowel sounds Rectal Exam - Male: Yes deferred Skin General skin exam: no rashes or lesions noted, turgor normal, skin not dry, no jaundice, No spider nevi and no striae Rashes: no rashes Nails: normal Neuro General: oriented to person, oriented to place and oriented to time Cranial nerves: Yes Equal, round and reactive pupils present and Yes Normal hearing present Speech: No Abnormal speech present Extrem General: Yes normal to inspection, No clubbing, No cyanosis and No edema Psych Appearance: grossly normal and well kempt Mental Status: mental status grossly normal Speech and movement: Normal speech and movement present Affect: normal affect Attitude: cooperative Thought process: Normal thought process present and not confabulating Thought content: Normal thought content present Insight: Limited insight present (Psych) Judgement: Limited judgement present (Psych) Results Reviewed Results Reviewed: COLONOSCOPY 06/21/23 Findings: Terminal Ileum: Not evaluated Cecum: Normal Ascending Colon: Two 5- 6 mm sessile polyps in the distal AC - removed with a cold biopsy Transverse Colon: Normal Descending Colon: Moderate diverticulosis Sigmoid Colon: A 4-5 mm sessile polyp - removed with a cold biopsy. Moderate diverticulosis Rectum: Normal Ano-rectum: Moderate internal hemorrhoids Impression and Post Procedure Diagnosis: Colonoscopy Findings: Three small polyps removed Random biopsies were obtained from the colon to check for microscopic colitis Moderate diverticulosis seen in the left colon Large hemorrhoids on retroflexed exam - likely source for rectal bleeding. Plan: I will send a letter with pathology results Hydrocortisone cream for hemorrhoids. If bleeding persists refer to surgery for band ligation or hemorrhoidectomy. Patient has an appointment on 07/06/23 in the GI Clinic with Yue Reddy NP. Repeat Colonoscopy interval based on path results - in 3-5 years if polyps are adenomatous and 10 years if polyps are hyperplastic. BIOPSY Received: 06/21/23 Diagnosis A. Colon, ascending, polypectomies: - Colonic mucosa with prominent lymphoid aggregate. - Colonic mucosa with mild surface hyperplastic changes; multiple additional levels examined. B. Colon, left, biopsy: Colonic mucosa within normal limits; negative for microscopic colitis. C. Colon, sigmoid, polypectomy: Hyperplastic mucosal polyp Assessment & Plan Assessment & Plan (1) Bleeding hemorrhoids: Code(s): K64.9 - Unspecified hemorrhoids (2) Chronic diarrhea: Code(s): K52.9 - Noninfective gastroenteritis and colitis, unspecified Plan [place] #[id number] He is agreeable to a 10 year follow up. The procedure was well tolerated. The results were explained and the patient is agreeable to the follow-up interval as stated. The bowel pattern has returned to normal. Education was provided to tell any 1st degree relatives about their findings to be sure that they are screened by age 45. Educated that they will be put on a recall list when it is time for their repeat scope but should they move out of state or away from the hospital they will need to remember along with their primary to repeat the procedure in a timely fashion to avoid any adverse complications. He continues to have diarrhea depending on what I eat. He says that sweet crackers or grape juice give him diarrhea as well as cheese. Drinking OJ also give him a lot of gas. I think we should do food allergy testing going forward, but he may have intolerances that are not easily tested for except via trial and error. If we do not find outright allergies, we may need to consider creon - but for now he does not feel he needs any medication to control the diarrhea. His bleeding is most likely from hemorrhoids. I had sent proctosol cream, but he has not picked it up as he has not had any more bleeding. ROV 4 weeks for RAST results. Orders: Orders Rast Allergen 08/06/23 K52.9 - Noninfective gastroenteritis and colitis, unspecified Coding Level of Care Code Est Pt Level 3 (85822) Diagnoses Bleeding hemorrhoids K64.9 Chronic diarrhea K52.9
== END 2023-08-06 11:33 | disposition home or self-care (01) ==
PROVIDERS: PCP Internal Medicine; Visit Provider Nurse Practitioner
DX: K64.9 Unspecified hemorrhoids (principal); K52.9 Noninfective gastroenteritis and colitis, unspecified
CPT/HCPCS: 99213